=== PATIENT | female | born 1980 | race Caucasian/White ===

== ENCOUNTER 2016-06-17 11:31 | Observation (INO) | payer MEDICARE ==
[~2016-06-17] VITALS: Ht 157.5 cm; Wt 89.5 kg
[2016-06-17] MEDS ORDERED: NALOXONE 0.4 MG/ML AMP ONE (11:52)
[2016-06-17] MEDS ORDERED: NALOXONE 2 MG/2 ML SYRINGE ONE (12:07)
[2016-06-17] MEDS ORDERED: SODIUM CHLORIDE 0.9% 1,000 ML ONE ×2 (12:08→12:13)
[2016-06-17] MEDS ORDERED: SALINE FLUSH 10 ML FLUSH PRN (15:50)
[2016-06-17] MEDS ORDERED: BISACODYL 10 MG SUPP RECTAL PRN (15:50)
[2016-06-17] MEDS ORDERED: ALU/MAG/SIM 30 ML UDC PO PRN (15:50)
[2016-06-17] MEDS ORDERED: BISACODYL EC 5 MG TAB PO PRN (15:50)
[2016-06-17] MEDS ORDERED: MAG HYDROX 30 ML UDC PO PRN (15:50)
[2016-06-17 18:16] VITALS: BP_SYST 124; BP_SYST 128; RESP 18; TEMP 98.1
[2016-06-17 18:17] VITALS: BMI 36.1
[2016-06-17] MEDS ORDERED: Flu Vaccine Quadrivalent 60 MCG/0.5 ML IM.VACC ONE (18:35)
[2016-06-17] MEDS: SODIUM CHLOR 0.9% W/KCL 20MEQ 1,000 ML IV SCH (18:51)
[2016-06-17 19:41] VITALS: BP_SYST 129; RESP 20; TEMP 98.5
[2016-06-17] MEDS: SALINE FLUSH 10 ML FLUSH SCH (20:00)
[2016-06-17] MEDS ORDERED: Atorvastatin 20 MG TAB PO SCH (21:14)
[2016-06-17] MEDS: GABAPENTIN 600 MG TAB PO SCH (21:42)
[2016-06-17] MEDS: TOPIRAMATE 25 MG TAB PO SCH (21:42)
[2016-06-18] VITALS (7 sets, daily range): BP systolic 108–133; RESP 18–20; TEMP 97.8–98.9
[2016-06-18] MEDS: SODIUM CHLOR 0.9% W/KCL 20MEQ 1,000 ML IV SCH (03:05)
[2016-06-18] MEDS ORDERED: SODIUM CHLORIDE 0.9% FLUSH BAG 500 ML IV SCH (06:00)
[2016-06-18] MEDS: SALINE FLUSH 10 ML FLUSH SCH (07:11)
[2016-06-18] MEDS ORDERED: BUPROPION XL 150 MG TAB PO SCH (09:00)
[2016-06-18] MEDS ORDERED: ENOXAPARIN 40 MG/0.4 ML SYR SUBQ SCH (09:00)
[2016-06-18] MEDS: TOPIRAMATE 25 MG TAB PO SCH (09:13)
[2016-06-18] MEDS: GABAPENTIN 600 MG TAB PO SCH (09:14)
== END 2016-06-18 09:52 | disposition home or self-care (01) ==
LOC: ENRESERVDT → ENRESERVTM → EDUNIT# 11:31 → EDBD 11:31 → ER 11:31 → ENPENDDIS 15:47 → EMR 15:47 → 4NT 18:00
PROVIDERS: ADMIT Internal Medicine; ATTEND Internal Medicine
DX: R41.0 Disorientation, unspecified (principal); F19.10 Other psychoactive substance abuse, uncomplicated; G89.4 Chronic pain syndrome; G47.00 Insomnia, unspecified; Z79.899 Other long term (current) drug therapy; F17.210 Nicotine dependence, cigarettes, uncomplicated; Z23 Encounter for immunization
CPT/HCPCS: 70450 ×2; 70551 ×2; 71010 ×2; 74176 ×2; 80053 ×2; 80307; 81003 ×2; 82947 ×2; 83605 ×2; 84703 ×2; 85025 ×2; 85610 ×2; 87040 ×2; 93005 ×2; 96361 ×2; 96374 ×2; 97799; 99285; G0378; G0479; Q2039